=== PATIENT | male | born 1965 | race Caucasian/White ===

== ENCOUNTER 2018-07-30 12:30 | Day surgery (SDC) | payer OTHER ==
[2018-07-26 11:17] VITALS: BMI 33.9
[2018-07-30 12:44] VITALS: TEMP 98.1
[2018-07-30] MEDS ORDERED: BUPIVACAINE HCL/PF 2.5 MG/ML - 30 ML VIAL IJ ONE (14:19)
[2018-07-30] MEDS ORDERED: TRIAMCINOLONE ACET 40MG/1ML VIAL ONE (14:19)
[2018-07-30] MEDS ORDERED: LIDOCAINE HCL 1% PRESERVATIVE FREE - 30ML VIAL ONE (14:36)
[2018-07-30] MEDS ORDERED: IBUPROFEN 400 MG TABLET (FP) PO PRN (15:29)
[2018-07-30] MEDS ORDERED: ACETAMINOPHEN 325 MG TABLET (FP) PO PRN (15:29)
[2018-07-30] MEDS ORDERED: LACTATED RINGERS SOLUTION 1,000 ML IV SCH (15:30)
[2018-07-30 15:46] VITALS: BP 144/88; PULSE 76
--- NOTE | 2018-07-30 17:12 | OPR ---
DATE OF PROCEDURE: 07/30/18 PROCEDURE: Left hip arthrogram and cortisone injection SURGEON: Sivakumar Adams D.O. DIRECTOR SUMMER SESSIONS: Tomasz Lopez D.O. CONSEN: Obtained ANESTHESIA: Local EBL: 0 ml FLUIDS: N/A PRE-OP DX: Left Hip Arthritis POST-OP DX: Left Hip Arthritis INDICATION: Severe left hip pain secondary to advanced left hip osteoarthritis. The patient has been having severe pain in bilateral hips for the past few months. His left hip is currently significantly more painful. The risks and benefits of the procedure were discussed at length with the patient today. Risks include but are not limited to infection, blood loss, artery or nerve damage, numbness tingling in the left lower extremity, blood clot, and continued hip pain. I also discussed at length that this procedure may only benefit him temporarily, and that he will need a total hip replacement in the future. After careful consideration the patient elected to proceed with the injection today. The patient was identified by the physician and the injection site verified. History and physical have been reviewed and all systems are negative unless otherwise noted. SURGEON'S NARRATIVE: The patient was taken to the operating room and placed in a supine position. A time-out was called. After the patient was properly identified, consent was obtained and allergies were reviewed the injection site on the anterolateral portion of the left hip was shaved and cleaned with a chlorohexadine scrub. Using strict aseptic technique, the left hip was prepped with a chlorohexadine prep-stick. 10 cc's of 1% plain lidocaine were injected into the skin and subcuteanous tissues over the injection site using fluoroscopy to confirm correct positioning. Using this injection site, a 22 gauge spinal needle was placed into the caspule of the left hip joint using fluoroscopy to confirm positioning. 3cc's of omnipaque 150 mgI/ml was injected into the capsule to further confirm placement of the spinal needle into the joint. Once this was confirmed, hep-lock tubing was attached to the spinal needle, and 4 cc's of .25 % Marcaine, and 80mg of Kenalog were injected into the joint. The spinal needle was then removed, the injection site was cleaned, and a large bandaid was placed over it. The patient tolerated the procedure well, was placed on a stretcher and taken to the recovery room in stable position, he was then discharged later without any adverse reactions noted. He was awake during the entire procedure. The patients postop status is good. Post-operatively in the PACU, he reports his pain has drastically improved since the injection. EBL: 0cc Specimens: None sent Tomasz Lopez DO served as the first-patient services assistant for this injection, as there were no additional PA's or assists available. Findings are represented by preoperative and postoperative diagnoses. There were no unexpected findings. No blood products were administered. No unusual events were encountered. The procedure was performed as described here. The description is complete, thereby making additional confirmations of what did not take place unnecessary. The patient will remain WBAT LLE. He will follow up in the office in 1 week to see his progress. He will make his appointment for physical therapy at that time. We will discuss further treatment options then as necessary.
== END 2018-07-30 15:47 | disposition home or self-care (01) ==
LOC: FASU 12:30
PROVIDERS: ATTEND Orthopaedic Surgery Sports Medicine
PROC: 3E0U33Z Introduction of Anti-inflammatory into Joints, Percutaneous Approach (ICD-10-PCS; principal; 2018-07-30 14:51)
DX: M16.0 Bilateral primary osteoarthritis of hip (principal)
CPT/HCPCS: 73502-TC-LT-FY; 76000-TC-FY